=== PATIENT | male | born 1955 | race Caucasian/White ===

== ENCOUNTER → 2017-03-03 | Outpatient (CLI) | payer BC, MEDICARE ==
[~2017-03-03] MED LIST: ATIVAN1 MG PO; B12,B-12,B 12500 MC1 PO; BUSPIRONE10 MG PO; D3 PO; Duragesic 25 M25 MCG TD; Duragesic 50 M50 MCG T; FLOMAX0.4 MG PO; HYDROCODONE BIT1 T11 PO; IBU800 MG PO; IBUPROFEN800 MG PO; KEFLEX500 M1 PO; LIPITOR20 MG PO; Lovenox40 MG/0.4 SQ; NAPROSYN500 MG PO; OSCAL PO; PERCOCET 325 MG1 TA3 PO; PERCOCET 325 MG1 TA7 PO; PROTONIX40 MG PO; ZESTRIL10 MG PO; ZOFRAN4 MG PO
== END | disposition home or self-care (01) ==
LOC: ORTHO 03:43
DX: M19.012 Primary osteoarthritis, left shoulder (principal)

== ENCOUNTER → 2017-05-29 | Outpatient (CLI) | payer BC, MEDICARE | END | disposition home or self-care (01) | LOC: RAD 15:11 | DX: M51.36 Other intervertebral disc degeneration, lumbar region (principal); M47.817 Spondylosis without myelopathy or radiculopathy, lumbosacral region; M19.011 Primary osteoarthritis, right shoulder ==

== ENCOUNTER → 2017-09-09 | Outpatient (CLI) | payer MEDICARE | END | disposition home or self-care (01) | LOC: ORTHO 03:05 | DX: M25.531 Pain in right wrist (principal); G56.01 Carpal tunnel syndrome, right upper limb ==

== ENCOUNTER → 2017-10-02 | Outpatient (CLI) | payer BC, MEDICARE ==
[2017-10-02 11:20] LABS: BASO % 0.3 % (0.0-1.0); EOS # 0.1 10*3/uL (0.0-0.4); HEMATOCRIT 39.1 % (42.0-52.0); HEMOGLOBIN 13.7 g/dl (14.0-18.0); LYMPH # 1.6 10*3/uL (1.3-4.4); LYMPH % 23.6 % (27.0-41.0); MEAN CELL VOLUME 89.9 fl (80.0-94.0); MEAN CORPUSCULAR HGB 31.5 pg (27.0-31.0); MEAN PLATELET VOLUME 9.3 fl (9.6-12.3); MONO # 0.5 10*3/uL (0.1-1.0); MONO % 8.1 % (3.0-9.0); NEUT # 4.3 10*3/uL (2.3-7.9); NEUT % 65.5 % (47.0-73.0); PLATELET COUNT AUTOMATED 146 10*3/uL (130-400); RED BLOOD COUNT 4.35 10*6/uL (4.50-5.90); RED CELL DISTRI WIDTH 12.8 % (0-14.5); WHITE BLOOD COUNT 6.6 10*3/uL (4.8-10.8)
[2017-10-02 11:40] LABS: BUN 19 mg/dl (7-24); CHLORIDE 106 mmol/L (98-107); CREATININE 0.95 mg/dL (0.70-1.30); POTASSIUM 4.9 mmol/L (3.5-5.1); SODIUM 136 mmol/L (136-145)
== END | disposition home or self-care (01) ==
LOC: LAB 09:44
PROVIDERS: Orthopaedic Surgery
DX: Z01.818 Encounter for other preprocedural examination (principal); G56.01 Carpal tunnel syndrome, right upper limb; E55.9 Vitamin D deficiency, unspecified

== ENCOUNTER → 2017-10-07 | Day surgery (SDC) | payer BC, MEDICARE ==
[2017-10-07] VITALS (7 sets, daily range): BP systolic 101–153; BP diastolic 48–72
[~2017-10-07] VITALS: Ht 1767 cm; Wt 92.1 kg
== END | disposition home or self-care (01) ==
LOC: SDC 10-02 09:30
DX: G56.01 Carpal tunnel syndrome, right upper limb (principal); I10 Essential (primary) hypertension; E78.00 Pure hypercholesterolemia, unspecified; Z98.890 Other specified postprocedural states; Z96.611 Presence of right artificial shoulder joint; Z82.49 Family history of ischemic heart disease and other diseases of the circulatory system

== ENCOUNTER → 2017-11-03 | Outpatient (CLI) | payer BC, MEDICARE | END | disposition home or self-care (01) | LOC: ORTHO 02:29 | DX: G56.01 Carpal tunnel syndrome, right upper limb (principal) ==

== ENCOUNTER → 2017-11-28 | Outpatient (CLI) | payer BC, MEDICARE | END | disposition home or self-care (01) | LOC: CT 15:39 | DX: M16.11 Unilateral primary osteoarthritis, right hip (principal); M23.91 Unspecified internal derangement of right knee ==

== ENCOUNTER → 2018-01-06 | Outpatient (CLI) | payer BC, MEDICARE ==
[~2018-01-06] MED LIST changes: +TRAZODONE HCL300 MG PO; +ZOLOFT25 MG PO
[2018-01-06 10:53] LABS: BILIRUBIN NEGATIVE (NEGATIVE); BLOOD NEGATIVE (NEGATIVE); CLARITY SL CLOUDY (CLEAR); COLOR YELLOW (YELLOW); GLUCOSE NEGATIVE (NEGATIVE); KETONE NEGATIVE (NEGATIVE); LEUKO ESTERASE NEGATIVE (NEGATIVE); NITRITE NEGATIVE (NEGATIVE); PH 5.5 (5.0-9.0); SPECIFIC GRAVITY >= 1.030 (1.005-1.030); UROBILINOGEN 0.2 E.U./dl (0.2-1.0)
[2018-01-06 11:00] LABS: BASO % 0.1 % (0.0-1.0); EOS # 0.1 10*3/uL (0.0-0.4); EOS % 1.4 % (1.0-4.0); HEMATOCRIT 38.1 % (42.0-52.0); HEMOGLOBIN 13.2 g/dl (14.0-18.0); LYMPH # 1.6 10*3/uL (1.3-4.4); LYMPH % 17.5 % (27.0-41.0); MEAN CELL VOLUME 88.2 fl (80.0-94.0); MEAN CORPUSCULAR HGB 30.6 pg (27.0-31.0); MEAN CORPUSCULAR HGB CONC 34.6 g/dl (33.0-37.0); MEAN PLATELET VOLUME 9.5 fl (9.6-12.3); MONO # 0.6 10*3/uL (0.1-1.0); MONO % 6.1 % (3.0-9.0); NEUT # 6.8 10*3/uL (2.3-7.9); NEUT % 74.7 % (47.0-73.0); PLATELET COUNT AUTOMATED 154 10*3/uL (130-400); RED BLOOD COUNT 4.32 10*6/uL (4.50-5.90); RED CELL DISTRI WIDTH 13.1 % (0-14.5)
[2018-01-06 11:17] LABS: CHOLESTEROL 150 mg/dL (<200); CPK 196 U/L (39-308); HDL CHOLESTEROL 34 mg/dl (40-60); LDL CHOLESTEROL 92 mg/dL (9-159); TRIGLYCERIDES 120 mg/dl (<150); VLDL CHOLESTEROL 24 mg/dL (6-40)
[2018-01-06 11:18] LABS: ALBUMIN 3.7 gm/dl (3.1-4.5); ALKALINE PHOSPHATASE 68 U/L (45-117); BUN 16 mg/dl (7-24); CHLORIDE 102 mmol/L (98-107); CREATININE 1.07 mg/dL (0.70-1.30); POTASSIUM 4.3 mmol/L (3.5-5.1); SGOT/AST 19 IU/L (3-35); SGPT/ALT 31 U/L (12-78); SODIUM 136 mmol/L (136-145); TOTAL PROTEIN 7.6 gm/dL (6.4-8.2)
[2018-01-06 11:41] LABS: EPITHELIAL CELLS 0-2; MUCOUS 3+
== END | disposition home or self-care (01) ==
LOC: LAB 09:22
PROVIDERS: Family Medicine; Orthopaedic Surgery
DX: Z01.818 Encounter for other preprocedural examination (principal); M17.11 Unilateral primary osteoarthritis, right knee; E55.9 Vitamin D deficiency, unspecified; Z79.899 Other long term (current) drug therapy

== ENCOUNTER → 2018-02-01 | Outpatient (CLI) | payer BC, MEDICARE | END | disposition home or self-care (01) | LOC: LAB 08:56 | DX: Z01.818 Encounter for other preprocedural examination (principal); R73.01 Impaired fasting glucose ==

== ENCOUNTER 2018-02-03 04:06 | Inpatient (IN) | payer BC, MEDICARE ==
[2018-01-06 09:43] VITALS: BP 135/68
[2018-01-13 06:30] VITALS: BP 141/79
[2018-01-16 09:18] VITALS: BP 119/55
[2018-01-16 09:33] VITALS: BP 103/44
[2018-02-03] VITALS (10 sets, daily range): BP systolic 116–160; BP diastolic 46–105
[~2018-02-03] VITALS: Ht 172.7 cm; Wt 93.0 kg
[2018-02-04] VITALS: BP 100/66
[2018-02-04 04:00] VITALS: BP 123/73
[2018-02-04 07:07] LABS: BASO % 0.1 % (0.0-1.0); EOS # 0.1 10*3/uL (0.0-0.4); EOS % 0.9 % (1.0-4.0); HEMOGLOBIN 10.7 g/dl (14.0-18.0); LYMPH # 0.8 10*3/uL (1.3-4.4); LYMPH % 8.2 % (27.0-41.0); MEAN CELL VOLUME 92.8 fl (80.0-94.0); MEAN CORPUSCULAR HGB CONC 33.4 g/dl (33.0-37.0); MEAN PLATELET VOLUME 9.1 fl (9.6-12.3); MONO # 0.7 10*3/uL (0.1-1.0); MONO % 7.2 % (3.0-9.0); NEUT # 8.2 10*3/uL (2.3-7.9); NEUT % 83.2 % (47.0-73.0); PLATELET COUNT AUTOMATED 133 10*3/uL (130-400); RED BLOOD COUNT 3.45 10*6/uL (4.50-5.90); RED CELL DISTRI WIDTH 13.6 % (0-14.5); WHITE BLOOD COUNT 9.9 10*3/uL (4.8-10.8)
[2018-02-04 07:31] LABS: ALBUMIN 3.2 gm/dl (3.1-4.5); CHLORIDE 101 mmol/L (98-107); POTASSIUM 3.7 mmol/L (3.5-5.1); SODIUM 137 mmol/L (136-145)
[2018-02-04 07:51] LABS: ALKALINE PHOSPHATASE 47 U/L (45-117); BUN 10 mg/dl (7-24); CHOLESTEROL 115 mg/dL (<200); CREATININE 0.99 mg/dL (0.70-1.30); FREE T4 1.57 ng/dl (0.76-1.46); HDL CHOLESTEROL 31 mg/dl (40-60); LDL CHOLESTEROL 66 mg/dL (9-159); PHOSPHOROUS 2.8 mg/dL (2.5-4.9); SGOT/AST 22 IU/L (3-35); SGPT/ALT 26 U/L (12-78); THYROID STIM HORMONE (HS) 0.692 uIU/ml (0.358-4.75); TOTAL PROTEIN 6.3 gm/dL (6.4-8.2); TRIGLYCERIDES 89 mg/dl (<150); VLDL CHOLESTEROL 18 mg/dL (6-40)
[2018-02-04 08:00] VITALS: BP 138/74
[2018-02-04 08:19] LABS: VITAMIN D, 25-HYDROXY 32.4 ng/mL (30-100)
[2018-02-04 12:00] VITALS: BP 132/70
[2018-02-04 16:00] VITALS: BP 119/71
[2018-02-04 20:00] VITALS: BP 117/55
[2018-02-05] VITALS: BP 121/64
[2018-02-05 06:13] LABS: BASO % 0.2 % (0.0-1.0); EOS # 0.2 10*3/uL (0.0-0.4); EOS % 3.7 % (1.0-4.0); HEMATOCRIT 27.7 % (42.0-52.0); LYMPH % 18.1 % (27.0-41.0); MEAN CELL VOLUME 93.6 fl (80.0-94.0); MEAN CORPUSCULAR HGB 30.4 pg (27.0-31.0); MEAN CORPUSCULAR HGB CONC 32.5 g/dl (33.0-37.0); MEAN PLATELET VOLUME 9.2 fl (9.6-12.3); MONO # 0.6 10*3/uL (0.1-1.0); MONO % 10.3 % (3.0-9.0); NEUT # 3.8 10*3/uL (2.3-7.9); NEUT % 67.5 % (47.0-73.0); PLATELET COUNT AUTOMATED 104 10*3/uL (130-400); RED BLOOD COUNT 2.96 10*6/uL (4.50-5.90); RED CELL DISTRI WIDTH 13.3 % (0-14.5); WHITE BLOOD COUNT 5.6 10*3/uL (4.8-10.8)
[2018-02-05 08:00] VITALS: BP 118/78
[2018-02-05 12:00] VITALS: BP 124/88
[2018-02-05 16:00] VITALS: BP 127/71
[2018-02-05 20:00] VITALS: BP 128/76
[2018-02-06] VITALS: BP 145/70
[2018-02-06 06:16] LABS: BASO % 0.2 % (0.0-1.0); EOS # 0.2 10*3/uL (0.0-0.4); EOS % 4.1 % (1.0-4.0); HEMATOCRIT 27.2 % (42.0-52.0); HEMOGLOBIN 9.1 g/dl (14.0-18.0); LYMPH # 1.3 10*3/uL (1.3-4.4); LYMPH % 23.5 % (27.0-41.0); MEAN CELL VOLUME 92.2 fl (80.0-94.0); MEAN CORPUSCULAR HGB 30.8 pg (27.0-31.0); MEAN CORPUSCULAR HGB CONC 33.5 g/dl (33.0-37.0); MEAN PLATELET VOLUME 9.3 fl (9.6-12.3); MONO # 0.5 10*3/uL (0.1-1.0); MONO % 8.1 % (3.0-9.0); NEUT # 3.6 10*3/uL (2.3-7.9); NEUT % 63.7 % (47.0-73.0); PLATELET COUNT AUTOMATED 121 10*3/uL (130-400); RED BLOOD COUNT 2.95 10*6/uL (4.50-5.90); RED CELL DISTRI WIDTH 13.1 % (0-14.5); WHITE BLOOD COUNT 5.7 10*3/uL (4.8-10.8)
[2018-02-06 08:00] VITALS: BP 118/60
[2018-02-06] MEDS ORDERED: ENOXAPARIN40 MG/0.2 SC (11:27)
[2018-02-06] MEDS ORDERED: PERCOCET 5-3251 EACH PO (11:29)
== END 2018-02-06 12:46 | DRG 470 ==
LOC: SDC 04:06 → 4E 07:24 → SDC 09:30 → 4E 10:22 → SDC 10:30 → 4E 02-06 12:46
PROVIDERS: Orthopaedic Surgery; Registered Nurse
PROC: 0SRC0J9 Replacement of Right Knee Joint with Synthetic Substitute, Cemented, Open Approach (ICD-10-PCS; principal; 2018-02-03)
DX: M17.11 Unilateral primary osteoarthritis, right knee (principal); D64.9 Anemia, unspecified; F32.9 Major depressive disorder, single episode, unspecified; R00.0 Tachycardia, unspecified; N40.0 Benign prostatic hyperplasia without lower urinary tract symptoms; K21.9 Gastro-esophageal reflux disease without esophagitis; M25.561 Pain in right knee; Z96.649 Presence of unspecified artificial hip joint; I10 Essential (primary) hypertension; E78.5 Hyperlipidemia, unspecified; E66.9 Obesity, unspecified; Z68.31 Body mass index [BMI] 31.0-31.9, adult; Z82.5 Family history of asthma and other chronic lower respiratory diseases; Z89.612 Acquired absence of left leg above knee; Z79.1 Long term (current) use of non-steroidal anti-inflammatories (NSAID); Z79.899 Other long term (current) drug therapy

== ENCOUNTER → 2018-03-24 | Outpatient (CLI) | payer BC, MEDICARE ==
[~2018-03-24] MED LIST changes: +ENOXAPARIN40 MG/0.2 SC; +PERCOCET 5-3251 EACH PO
== END | disposition home or self-care (01) ==
LOC: ORTHO 04:19
DX: Z47.33 Aftercare following explantation of knee joint prosthesis (principal); M25.461 Effusion, right knee; Z96.651 Presence of right artificial knee joint

== ENCOUNTER → 2018-06-25 | Outpatient (CLI) | payer BC, MEDICARE ==
[~2018-06-25] MED LIST changes: +IBU800 M2 PO; +ZOLOFT50 MG PO
== END | disposition home or self-care (01) ==
LOC: RAD 12:28
DX: Z96.651 Presence of right artificial knee joint (principal)

== ENCOUNTER 2018-07-15 11:05 | Inpatient (IN) | payer BC, MEDICARE ==
[~2018-07-15] VITALS: Ht 172.7 cm; Wt 84.5 kg
[2018-07-15] VITALS (8 sets, daily range): BP systolic 96–155; BP diastolic 55–78
--- NOTE | ~2018-07-15 | EKG ---
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
--- NOTE | ~2018-07-15 | EKG ---
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
--- NOTE | ~2018-07-15 | ST ---
[place], [place] EXERCISE STRESS TEST REPORT [id number] UNIT #: [id number] ROOM: 428 DOCTOR: LISHA BOLIVAR MD BIRTHDATE: [birth year] DOS: 07/16/2018 LEXISCAN STRESS ELECTROCARDIOGRAM REFERRING PHYSICIAN: Dr. Stevenson INDICATION: Precordial chest pain. The patient underwent standard protocol Lexiscan stress EKG. Baseline EKG normal sinus, nonspecific ST-T wave changes. Baseline heart rate was 60 with a blood pressure of 120/70. The patient's peak heart rate was 97 with blood pressure 144/84. The patient had no chest pain, no arrhythmias, no ischemic changes. SUMMARY OF FINDINGS: Unremarkable Lexiscan stress EKG. Please see separate report for perfusion scan imaging. LISHA BOLIVAR MD CM:STRESS:EXERCISE STRESS TEST REPORT [id number] [id number] LISHA BOLIVAR MD
--- NOTE | ~2018-07-15 | EKG ---
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
[~2018-07-15 11:05] MED LIST changes: -IBU800 M2 PO; -ZOLOFT50 MG PO
[2018-07-15 11:28] LABS: BASO % 0.3 % (0.0-1.0); EOS # 0.2 10*3/uL (0.0-0.4); EOS % 2.2 % (1.0-4.0); HEMATOCRIT 38.9 % (42.0-52.0); HEMOGLOBIN 13.4 g/dl (14.0-18.0); LYMPH # 1.7 10*3/uL (1.3-4.4); LYMPH % 22.3 % (27.0-41.0); MEAN CORPUSCULAR HGB 30.3 pg (27.0-31.0); MEAN CORPUSCULAR HGB CONC 34.4 g/dl (33.0-37.0); MEAN PLATELET VOLUME 8.9 fl (9.6-12.3); MONO # 0.5 10*3/uL (0.1-1.0); NEUT # 5.3 10*3/uL (2.3-7.9); NEUT % 68.9 % (47.0-73.0); PLATELET COUNT AUTOMATED 184 10*3/uL (130-400); RED BLOOD COUNT 4.42 10*6/uL (4.50-5.90); RED CELL DISTRI WIDTH 13.2 % (0-14.5); WHITE BLOOD COUNT 7.7 10*3/uL (4.8-10.8)
[2018-07-15 11:36] LABS: ACT PARTIAL THROMBO TIME 22.7 SECONDS (20.8-31.5)
[2018-07-15 11:43] LABS: ALBUMIN 3.9 gm/dl (3.1-4.5); ALKALINE PHOSPHATASE 61 U/L (45-117); BUN 15 mg/dl (7-24); CHLORIDE 106 mmol/L (98-107); CREATININE 0.95 mg/dL (0.70-1.30); POTASSIUM 4.1 mmol/L (3.5-5.1); SGOT/AST 17 IU/L (3-35); SGPT/ALT 25 U/L (12-78); SODIUM 137 mmol/L (136-145); TOTAL PROTEIN 7.7 gm/dL (6.4-8.2)
[2018-07-15 11:55] LABS: TROPONIN I < 0.015 ng/ml (<0.045)
[2018-07-15] MEDS ORDERED: IBU800 M2 PO (14:28)
[2018-07-15] MEDS ORDERED: ZOLOFT50 MG PO (14:29)
[2018-07-16] VITALS: BP 121/75
[2018-07-16 05:54] LABS: BASO % 0.1 % (0.0-1.0); EOS % 0.1 % (1.0-4.0); HEMATOCRIT 36.3 % (42.0-52.0); HEMOGLOBIN 12.5 g/dl (14.0-18.0); LYMPH # 1.3 10*3/uL (1.3-4.4); LYMPH % 10.9 % (27.0-41.0); MEAN CELL VOLUME 89.4 fl (80.0-94.0); MEAN CORPUSCULAR HGB 30.8 pg (27.0-31.0); MEAN CORPUSCULAR HGB CONC 34.4 g/dl (33.0-37.0); MEAN PLATELET VOLUME 9.8 fl (9.6-12.3); MONO # 0.7 10*3/uL (0.1-1.0); MONO % 6.4 % (3.0-9.0); NEUT # 9.5 10*3/uL (2.3-7.9); NEUT % 82.2 % (47.0-73.0); PLATELET COUNT AUTOMATED 205 10*3/uL (130-400); RED BLOOD COUNT 4.06 10*6/uL (4.50-5.90); RED CELL DISTRI WIDTH 13.3 % (0-14.5); WHITE BLOOD COUNT 11.5 10*3/uL (4.8-10.8)
[2018-07-16 06:01] LABS: BUN 18 mg/dl (7-24); CHLORIDE 109 mmol/L (98-107); CHOLESTEROL 150 mg/dL (<200); HDL CHOLESTEROL 33 mg/dl (40-60); LDL CHOLESTEROL 97 mg/dL (9-159); PHOSPHOROUS 3.3 mg/dL (2.5-4.9); POTASSIUM 4.3 mmol/L (3.5-5.1); SODIUM 139 mmol/L (136-145); TRIGLYCERIDES 101 mg/dl (<150); VLDL CHOLESTEROL 20 mg/dL (6-40)
[2018-07-16 06:07] LABS: THYROID STIM HORMONE (HS) 0.435 uIU/ml (0.358-4.75)
[2018-07-16 07:39] LABS: VITAMIN D, 25-HYDROXY 48.8 ng/mL (30-100)
[2018-07-16 08:00] VITALS: BP 136/69
[2018-07-16 12:14] LABS: BILIRUBIN NEGATIVE (NEGATIVE); BLOOD NEGATIVE (NEGATIVE); CLARITY SL CLOUDY (CLEAR); COLOR YELLOW (YELLOW); GLUCOSE NEGATIVE (NEGATIVE); KETONE NEGATIVE (NEGATIVE); LEUKO ESTERASE NEGATIVE (NEGATIVE); NITRITE NEGATIVE (NEGATIVE); PH 5.5 (5.0-9.0); SPECIFIC GRAVITY 1.025 (1.005-1.030); UROBILINOGEN 0.2 E.U./dl (0.2-1.0)
[2018-07-16 12:31] LABS: BACTERIA 3+; EPITHELIAL CELLS 0-2; MUCOUS 1+; WBC 0-2 wbc/hpf (0-5)
[2018-07-16 16:00] VITALS: BP 136/76
== END 2018-07-16 16:25 | disposition home or self-care (01) | DRG 205 ==
LOC: ED 11:05 → EDHOLD 13:09 → 4E 13:09
PROVIDERS: Internal Medicine
PROC: 3E033HZ Introduction of Radioactive Substance into Peripheral Vein, Percutaneous Approach (ICD-10-PCS; principal; 2018-07-16)
PROC: 4A02XM4 Measurement of Cardiac Total Activity, External Approach (ICD-10-PCS; principal; 2018-07-16)
DX: M94.0 Chondrocostal junction syndrome [Tietze] (principal); J18.9 Pneumonia, unspecified organism; E87.2 Acidosis; I25.110 Atherosclerotic heart disease of native coronary artery with unstable angina pectoris; I10 Essential (primary) hypertension; E78.5 Hyperlipidemia, unspecified; F41.9 Anxiety disorder, unspecified; K21.9 Gastro-esophageal reflux disease without esophagitis; E66.9 Obesity, unspecified; Z96.611 Presence of right artificial shoulder joint; Z96.642 Presence of left artificial hip joint; R73.9 Hyperglycemia, unspecified; R00.1 Bradycardia, unspecified; R06.82 Tachypnea, not elsewhere classified; D64.9 Anemia, unspecified; E78.00 Pure hypercholesterolemia, unspecified; F32.9 Major depressive disorder, single episode, unspecified; N40.0 Benign prostatic hyperplasia without lower urinary tract symptoms; Z96.651 Presence of right artificial knee joint; Z79.899 Other long term (current) drug therapy; Z89.612 Acquired absence of left leg above knee; Z83.3 Family history of diabetes mellitus; Z82.49 Family history of ischemic heart disease and other diseases of the circulatory system; Z83.6 Family history of other diseases of the respiratory system; Z68.28 Body mass index [BMI] 28.0-28.9, adult

== ENCOUNTER → 2018-08-26 | Outpatient (CLI) | payer BC, MEDICARE ==
[~2018-08-26] MED LIST changes: +IBU800 M2 PO; +ZOLOFT50 MG PO
== END | disposition home or self-care (01) ==
LOC: ORTHO 03:58
DX: Z47.33 Aftercare following explantation of knee joint prosthesis (principal); Z96.651 Presence of right artificial knee joint

== ENCOUNTER → 2019-08-03 | Outpatient (CLI) | payer BC, MEDICARE | END | disposition home or self-care (01) | LOC: RAD 13:37 | DX: M51.06 Intervertebral disc disorders with myelopathy, lumbar region (principal) ==

== ENCOUNTER → 2021-02-16 | Outpatient (CLI) | payer BC, MEDICARE ==
[2021-02-16 12:40] LABS: BASO % 0.3 % (0.0-1.0); EOS # 0.2 10*3/uL (0.0-0.4); EOS % 2.8 % (1.0-4.0); LYMPH # 1.3 10*3/uL (1.3-4.4); LYMPH % 19.3 % (27.0-41.0); MEAN CELL VOLUME 88.5 fl (80.0-94.0); MEAN CORPUSCULAR HGB 30.1 pg (27.0-31.0); MEAN CORPUSCULAR HGB CONC 34.1 g/dl (33.0-37.0); MEAN PLATELET VOLUME 9.3 fl (9.6-12.3); MONO # 0.5 10*3/uL (0.1-1.0); MONO % 6.9 % (3.0-9.0); NEUT # 4.8 10*3/uL (2.3-7.9); NEUT % 70.4 % (47.0-73.0); PLATELET COUNT AUTOMATED 186 10*3/uL (130-400); RED BLOOD COUNT 4.18 10*6/uL (4.50-5.90); RED CELL DISTRI WIDTH 12.9 % (0-14.5); WHITE BLOOD COUNT 6.8 10*3/uL (4.8-10.8)
[2021-02-16 13:10] LABS: ALBUMIN 3.5 gm/dl (3.1-4.5); ALKALINE PHOSPHATASE 65 U/L (45-117); BUN 12 mg/dl (7-24); CHLORIDE 101 mmol/L (98-107); CHOLESTEROL 115 mg/dL (<200); CREATININE 0.87 mg/dL (0.70-1.30); HDL CHOLESTEROL 38 mg/dl (40-60); LDL CHOLESTEROL 64 mg/dL (9-159); POTASSIUM 4.5 mmol/L (3.5-5.1); SGOT/AST 21 IU/L (3-35); SGPT/ALT 19 U/L (12-78); SODIUM 133 mmol/L (136-145); TOTAL PROTEIN 7.4 gm/dL (6.4-8.2); TRIGLYCERIDES 67 mg/dl (<150); VLDL CHOLESTEROL 13 mg/dL (6-40)
== END | disposition home or self-care (01) ==
LOC: LAB 11:59
PROVIDERS: ATTEND Family Medicine
DX: E78.2 Mixed hyperlipidemia (principal); I10 Essential (primary) hypertension; R53.83 Other fatigue

== ENCOUNTER → 2021-03-06 | Outpatient (CLI) | payer BC, MEDICARE | END | disposition home or self-care (01) | LOC: CARD 03:20 | PROVIDERS: ATTEND Internal Medicine Cardiovascular Disease | DX: I20.9 Angina pectoris, unspecified (principal); R53.81 Other malaise ==

== ENCOUNTER → 2022-01-01 | Outpatient (CLI) | payer BC, MEDICARE | END | disposition home or self-care (01) | LOC: RAD 13:40 | PROVIDERS: ATTEND Family Medicine | DX: R91.1 Solitary pulmonary nodule (principal) ==

== ENCOUNTER → 2022-03-04 | Outpatient (CLI) | payer BC, MEDICARE | END | disposition home or self-care (01) | LOC: RAD 11:53 | PROVIDERS: ATTEND Family Medicine | DX: J43.9 Emphysema, unspecified (principal) ==

== ENCOUNTER → 2023-02-12 | Outpatient (CLI) | payer BC, MEDICARE ==
[2023-02-12 12:52] LABS: BUN 12 mg/dl (9-23); CHLORIDE 99 mmol/L (98-107); CHOLESTEROL 90 mg/dL (<200); LDL CHOLESTEROL 45 mg/dL (9-159); POTASSIUM 4.5 mmol/L (3.4-5.1); TRIGLYCERIDES 41 mg/dl (<150)
== END | disposition home or self-care (01) ==
LOC: LAB 12:14
PROVIDERS: ATTEND Family Medicine
DX: I25.10 Atherosclerotic heart disease of native coronary artery without angina pectoris (principal); E78.2 Mixed hyperlipidemia

== ENCOUNTER 2023-12-07 11:49 | Inpatient (IN) | payer BC, MEDICARE ==
[~2023-12-07] VITALS: Ht 172.7 cm; Wt 77.1 kg
[2023-12-07] VITALS (10 sets, daily range): BP systolic 115–163; BP diastolic 55–90
[~2023-12-07 11:49] MED LIST changes: -TRAZODONE HCL300 MG PO; +TRAZODONE HYDR300 MG PO
[2023-12-07] MEDS ORDERED: diphenhydrAMINE hydrochloride 50 MG/ML VIAL IV ONE (12:00)
[2023-12-07] MEDS ORDERED: IOHEXOL 300 MG/ML 100 ML VIAL IV ONE (12:00)
[2023-12-07] MEDS ORDERED: Ondansetron Hydrochloride 4 MG/2 ML VIAL IV ONE ×2 (12:00→12:40)
[2023-12-07] MEDS ORDERED: Metoclopramide Hydrochloride 10 MG/2 ML AMP IV ONE (12:00)
[2023-12-07] MEDS ORDERED: SODIUM CHLORIDE 0.9% 1,000 ML IV ONE ×2 (12:00→18:18)
[2023-12-07 12:28] LABS: BILIRUBIN Negative (Negative); BLOOD Trace-Intact (Negative); CLARITY Clear (Clear); COLOR Yellow (Yellow); GLUCOSE Negative (Negative); KETONE Negative (Negative); LEUKO ESTERASE Negative (Negative); NITRITE Negative (Negative); SPECIFIC GRAVITY 1.015 (1.001-1.030); UROBILINOGEN 0.2 E.U./dl (0.0-1.0)
[2023-12-07 12:46] LABS: BASO % 0.2 % (0.0-1.0); EOS # 0.1 10*3/uL (0.0-0.4); EOS % 0.6 % (1.0-4.0); HEMATOCRIT 36.8 % (42.0-52.0); LYMPH # 0.9 10*3/uL (1.3-4.4); LYMPH % 9.7 % (27.0-41.0); MEAN CELL VOLUME 87.4 fl (80.0-94.0); MEAN CORPUSCULAR HGB 30.4 pg (27.0-31.0); MEAN CORPUSCULAR HGB CONC 34.8 g/dl (33.0-37.0); MEAN PLATELET VOLUME 8.6 fl (9.6-12.3); MONO # 0.4 10*3/uL (0.1-1.0); MONO % 4.2 % (3.0-9.0); NEUT # 8.3 10*3/uL (2.3-7.9); PLATELET COUNT AUTOMATED 172 10*3/uL (130-400); RED BLOOD COUNT 4.21 10*6/uL (4.50-5.90); WHITE BLOOD COUNT 9.7 10*3/uL (4.8-10.8)
[2023-12-07 12:47] LABS: URINE AMPHETAMINES Negative (1000ng/ml); URINE BARBITURATES Negative (200ng/ml); URINE BENZODIAZEPINES Negative (200ng/ml); URINE CANNABINOIDS (THC) Positive (50ng/ml); URINE COCAINE Negative (300ng/ml); URINE METHADONE Negative (300ng/ml); URINE OPIATES Negative (300ng/ml); URINE PHENCYCLIDINE Negative (25ng/ml)
[2023-12-07 12:53] LABS: BACTERIA 1+; EPITHELIAL CELLS 0-2; MUCOUS 2+; RBC 16-20 rbc/hpf (0-2); WBC 0-2 wbc/hpf (0-5)
[2023-12-07 12:57] LABS: ACT PARTIAL THROMBO TIME 26.5 SECONDS (20.0-32.1)
[2023-12-07 13:13] LABS: ALKALINE PHOSPHATASE 78 U/L (46-116); BUN 12 mg/dl (9-23); CHLORIDE 99 mmol/L (98-107); LIPASE 28 U/L (12-53); POTASSIUM 3.4 mmol/L (3.4-5.1); SGPT/ALT 20 U/L (5-49); TOTAL PROTEIN 7.6 gm/dL (6.0-8.0)
[2023-12-07 13:14] LABS: ETHYL ALCOHOL < 3.0 mg/dl (<3)
[2023-12-07] MEDS ORDERED: HYDROmorphONE Hydrochloride 0.5 MG/0.5 ML SYRINGE IV ONE ×2 (13:15→16:40)
[2023-12-07] MEDS ORDERED: Midazolam Hydrochloride 2 MG/2 ML VIAL IV ONE (13:40)
[2023-12-07] MEDS ORDERED: PERCOCET 10-321 EACH PO (16:01)
[2023-12-07] MEDS ORDERED: Piperacillin Sodium/Tazobact 50 ML IV ONE (16:40)
[2023-12-07] MEDS ORDERED: HYDROmorphONE Hydrochloride 0.5 MG/0.5 ML SYRINGE IV PRN (19:50)
[2023-12-07] MEDS ORDERED: Acetaminophen/Oxycodone 5 MG/325 MG TABLET PO PRN (19:50)
[2023-12-07] MEDS ORDERED: CELECOXIB 200 MG CAP PO ONE (19:50)
[2023-12-07] MEDS ORDERED: IBUPROFEN 400 MG TAB PO PRN (19:50)
[2023-12-07] MEDS ORDERED: Ondansetron Hydrochloride 4 MG/2 ML VIAL IV PRN (19:50)
[2023-12-07] MEDS ORDERED: POTASSIUM CH/0.45 NS 1,000 ML IV SCH (19:55)
[2023-12-07] MEDS ORDERED: REMERON30 M1 PO (21:19)
[2023-12-07] MEDS ORDERED: HEPARIN SODIUM 5,000 UNIT/ML VIAL SC SCH (22:00)
[2023-12-07] MEDS ORDERED: BUSPIRONE30 MG PO (22:17)
[2023-12-07] MEDS ORDERED: ZOLOFT100 MG PO (22:17)
[2023-12-07] MEDS ORDERED: LIPITOR80 MG PO (22:18)
[2023-12-07] MEDS ORDERED: ZANAFLEX4 MG PO (22:18)
[2023-12-07] MEDS ORDERED: Imdur SA60 MG PO (22:19)
[2023-12-07] MEDS ORDERED: OXYCODONE HCL10 M1 PO (22:20)
[2023-12-07] MEDS ORDERED: HYDR25T PO (22:20)
[2023-12-07] MEDS ORDERED: LISINOPRIL20 MG PO (22:21)
[2023-12-07] MEDS ORDERED: REMERON15 M2 PO (22:22)
[2023-12-07] MEDS ORDERED: Mirtazapine 15 MG TAB PO SCH (23:25)
[2023-12-08] VITALS: BP 149/73
[2023-12-08 05:37] LABS: BUN 11 mg/dl (9-23); CHLORIDE 106 mmol/L (98-107)
[2023-12-08 05:39] LABS: FREE T4 1.02 ng/dl (0.89-1.76)
[2023-12-08 05:46] LABS: POTASSIUM 4.4 mmol/L (3.4-5.1)
[2023-12-08 05:55] LABS: HEMATOCRIT 33.5 % (42.0-52.0); LYMPH # 0.6 10*3/uL (1.3-4.4); LYMPH % 5.3 % (27.0-41.0); MEAN CELL VOLUME 89.3 fl (80.0-94.0); MEAN CORPUSCULAR HGB 30.4 pg (27.0-31.0); MEAN PLATELET VOLUME 9.3 fl (9.6-12.3); MONO # 0.3 10*3/uL (0.1-1.0); MONO % 3.2 % (3.0-9.0); NEUT # 9.4 10*3/uL (2.3-7.9); NEUT % 89.8 % (47.0-73.0); PLATELET COUNT AUTOMATED 161 10*3/uL (130-400); RED BLOOD COUNT 3.75 10*6/uL (4.50-5.90); RED CELL DISTRI WIDTH 13.2 % (0-14.5); WHITE BLOOD COUNT 10.4 10*3/uL (4.8-10.8)
[2023-12-08 06:40] LABS: VITAMIN D, 25-HYDROXY 50.2 ng/mL (30-100)
[2023-12-08] MEDS ORDERED: Sertraline Hydrochloride 50 MG TAB PO SCH (08:00)
[2023-12-08 08:46] VITALS: BP 142/66
[2023-12-08] MEDS ORDERED: ATORVASTATIN CALCIUM 80 MG TAB PO SCH (10:00)
[2023-12-08] MEDS ORDERED: HYDROCHLOROTHIAZIDE 25 MG TAB PO SCH (10:00)
[2023-12-08] MEDS ORDERED: LISINOPRIL 20 MG TAB PO SCH ×2 (10:00→12:00)
[2023-12-08] MEDS ORDERED: ISOSORBIDE MONONITRATE 60 MG TAB PO SCH (10:00)
[2023-12-08] MEDS ORDERED: COLACE100 MG PO (11:20)
[2023-12-08 11:48] VITALS: BP 145/80
[2023-12-08] MEDS ORDERED: Tamsulosin Hydrochloride 0.4 MG CAP PO SCH (12:00)
[2023-12-08] MEDS ORDERED: busPIRone Hydrochloride 15 MG TAB PO SCH (12:00)
[2023-12-08] MEDS ORDERED: Midazolam Hydrochloride 5 MG/5 ML VIAL IV ONE (17:12)
[2023-12-08] MEDS ORDERED: PROPOFOL 200 MG/20 ML VIAL IV ONE (17:12)
[2023-12-08] MEDS ORDERED: ROCURONIUM BROMIDE 50 MG/5 ML SYRINGE IV ONE (17:12)
[2023-12-08] MEDS ORDERED: Ondansetron Hydrochloride 4 MG/2 ML VIAL IV ONE (17:12)
[2023-12-08] MEDS ORDERED: GLYCOPYRROLATE IN WATER/PF 0.4 MG/2 ML SYRINGE IV ONE (17:12)
[2023-12-08] MEDS ORDERED: SEVOFLURANE 250 ML BOT INH ONE (17:12)
[2023-12-08] MEDS ORDERED: Ketorolac Tromethamine 30 MG/ML VIAL IV ONE (17:12)
[2023-12-08] MEDS ORDERED: Succinylcholine Chloride 200 MG/10 ML SYRINGE IV ONE (17:12)
[2023-12-08] MEDS ORDERED: Dexamethasone Sodium Phospha 20 MG/5 ML VIAL IV ONE (17:12)
[2023-12-08] MEDS ORDERED: Lidocaine Hydrochloride 2% 10 ML AMP IM ONE (17:12)
[2023-12-08] MEDS ORDERED: Neostigmine Methylsulfate 3 MG/3 ML SYRINGE IV ONE (17:12)
[2023-12-08] MEDS ORDERED: Mirtazapine 15 MG TAB PO SCH (22:00)
== END 2023-12-08 13:00 | disposition home or self-care (01) | DRG 336 ==
LOC: ED 11:49 → EDHOLD 16:50 → 5E 16:50
PROVIDERS: Internal Medicine; Specialist; Student in an Organized Health Care Education/Training Program; ADMIT Family Medicine; ATTEND Family Medicine
PROC: 0DN84ZZ Release Small Intestine, Percutaneous Endoscopic Approach (ICD-10-PCS; principal; 2023-12-07)
PROC: 0D9670Z Drainage of Stomach with Drainage Device, Via Natural or Artificial Opening (ICD-10-PCS; 2023-12-07)
DX: K56.51 Intestinal adhesions [bands], with partial obstruction (principal); E87.1 Hypo-osmolality and hyponatremia; E87.20 Acidosis, unspecified; K45.8 Other specified abdominal hernia without obstruction or gangrene; I10 Essential (primary) hypertension; E78.2 Mixed hyperlipidemia; R73.9 Hyperglycemia, unspecified; D64.9 Anemia, unspecified; R82.71 Bacteriuria; Z96.651 Presence of right artificial knee joint; K44.9 Diaphragmatic hernia without obstruction or gangrene; K76.0 Fatty (change of) liver, not elsewhere classified; N40.1 Benign prostatic hyperplasia with lower urinary tract symptoms; E78.5 Hyperlipidemia, unspecified; R39.11 Hesitancy of micturition; F12.20 Cannabis dependence, uncomplicated; F32.A Depression, unspecified; K21.9 Gastro-esophageal reflux disease without esophagitis; G56.01 Carpal tunnel syndrome, right upper limb; Z82.49 Family history of ischemic heart disease and other diseases of the circulatory system; Z82.5 Family history of asthma and other chronic lower respiratory diseases; Z79.899 Other long term (current) drug therapy

== ENCOUNTER → 2025-08-25 | Outpatient (CLI) | payer BC, MEDICARE ==
[~2025-08-25] MED LIST changes: +BUSPIRONE30 MG PO; +COLACE100 MG PO; +HYDR25T PO; +Imdur SA60 MG PO; +LIPITOR80 MG PO; +LISINOPRIL20 MG PO; +OXYCODONE HCL10 M1 PO; +PERCOCET 10-321 EACH PO; +REMERON15 M2 PO; +REMERON30 M1 PO; +ZANAFLEX4 MG PO; +ZOLOFT100 MG PO
[2025-08-25 11:33] LABS: BASO # 0.0 10*3/uL (0.0-0.1); BASO % 0.2 % (0.0-1.0); EOS # 0.2 10*3/uL (0.0-0.4); EOS % 1.8 % (1.0-4.0); MEAN CELL VOLUME 89.5 fl (80.0-94.0); MEAN CORPUSCULAR HGB 30.1 pg (27.0-31.0); MEAN PLATELET VOLUME 8.9 fl (9.6-12.3); MONO # 0.6 10*3/uL (0.1-1.0); MONO % 7.8 % (3.0-9.0); NEUT # 6.0 10*3/uL (2.3-7.9); NEUT % 73.6 % (47.0-73.0); NUCLEATED RED BLOOD CELL 0.0 % (0.0-0.0); NUCLEATED RED BLOOD CELL 0.0 10*3/uL (0.0-0.0); PLATELET COUNT AUTOMATED 180 10*3/uL (130-400); RED CELL DISTRI WIDTH 13.0 % (0-14.5)
[2025-08-25 12:12] LABS: BUN 14 mg/dl (9-23); FREE T4 1.07 ng/dl (0.89-1.76); LDL CHOLESTEROL 62 mg/dL (9-159); SGPT/ALT 21 U/L (5-49)
[2025-08-25 12:13] LABS: VITAMIN D, 25-HYDROXY 37.3 ng/mL (30-100)
== END | disposition home or self-care (01) ==
LOC: LAB 11:06
PROVIDERS: ATTEND Internal Medicine
DX: I10 Essential (primary) hypertension (principal)